=== PATIENT | female | born 1960 ===

== ENCOUNTER 2016-09-18 07:59 | Inpatient (IN) | payer OTHER ==
[~2016-09-18] VITALS: Ht 158.7 cm; Wt 63.3 kg
--- NOTE | ~2016-09-18 | PR ---
[place], [place] PROGRESS NOTE NAME: [id number] UNIT #: [id number] ROOM: 317 DOCTOR: Anderson MALONE,APPLE BIRTHDATE: [birth year] DOS: 09/23/2016 SUBJECTIVE: The patient seen and spoke with the staff. Per staff, the patient is much calmer and not talking about the wedding or being as often as she was doing before. She is taking her medication regularly and did not have any side effect. The patient was pleasant, cooperative. She was actually in the day area watching a movie. She said that she is feeling better, taking her medications and did not have any side effect. She denied depressed mood or hopelessness. Denied any other neurovegetative signs and symptoms of depression. She said that she is talking with her family. She became very surprised when I asked her about her wedding and also being . She said that there is no groom, so there is no reason for her to be planning any wedding also. MENTAL STATUS EXAMINATION: The patient was pleasant, cooperative. Described her mood as "good." Affect, mood congruent. Thought process goal directed. No flight of ideas, loosening of association. She denied auditory or visual hallucination. She seems to be a little bit delusional, but not as overt as before. She denied suicidal ideation, intent or plan. She also denied homicidal ideation, intent or plan. Insight and judgment fair. ASSESSMENT: Schizoaffective disorder. PLAN: 1. Continue current medication and care. 2. Continue redirection. 3. Encourage activity and groups. APPLE MALONE MD CM:SHAILESH 1102 0151 Anderson MALONE 09/24/16 0151 interface
--- NOTE | ~2016-09-18 | PR ---
[place], [place] PROGRESS NOTE NAME[id number] UNIT #: [id number] ROOM: 317 DOCTOR: Anderson MALONE,APPLE BIRTHDATE: [birth year] DOS: 09/26/2016 PSYCHIATRIC PROGRESS NOTE SUBJECTIVE: The patient seen and spoke with the staff. Per staff, the patient is doing well. No behavioral problems or issues, taking her medication. Good sleep and appetite. The patient was pleasant, cooperative. She was in the day area watching TV with other patients in the unit. She reports doing well and feeling better. She did not talked about her wedding, no other delusion noted. She feels that the medication is helping her. We then started talking about plan her discharge plan. She was asking if she will be going to her brother or not. Then, the team actually discussed with her about going back to the senior care. She was informed that her sister want her to go to the senior care, so that the mental health agency can help her with the housing. She agreed with the plan. She was also informed that her sister want to help her throughout the process. MENTAL STATUS EXAMINATION: Pleasant, cooperative, describes her mood as "good." Affect, mood congruent. Thought process goal directed. No flight of ideas, loosening of association. She denied auditory or visual hallucination. No delusion or paranoia noted. She denied suicidal ideation, intent or plan. She also denied homicidal ideation, intent or plan. Insight and judgment fair. ASSESSMENT: Schizoaffective disorder. PLAN: 1. Continue current medication and care. 2. Continue redirection. 3. Discharge planning. APPLE MALONE MD CM:SHAILESH 10 10 Anderson MALONE 09/27/161910 interface
--- NOTE | ~2016-09-18 | PR ---
[place], [place] PROGRESS NOTE [id number] UN[facility] #: [id number] ROOM: 317 DOCTOR: Anderson MALONE,APPLE BIRTHDATE: [birth year] DOS: 09/21/2016 SUBJECTIVE: The patient seen and spoke with the staff. Per staff, the patient is still delusional and paranoid, taking her medications. No behavioral problems or issues. The patient was pleasant, cooperative. She was in the day area. She reports doing well. She reported good sleep and appetite, still seems guarded. Talked about the marriage, but did not elaborate on it. She feels that the medication is helping her. She did not express any of the problems or concern. MENTAL STATUS EXAMINATION: The patient was pleasant, cooperative. Described her mood as "fine." Affect broad range. Thought process goal directed. There is no flight of ideas or loosening of association. She denied auditory or visual hallucination. She is still delusional, paranoid. She denied suicidal ideation, intent or plan. She also denied homicidal ideation, intent or plan. ASSESSMENT: Schizoaffective disorder. PLAN: 1. Continue current Invega. 2. We will add Cymbalta 30 mg in the morning, which will help with her depression as well as her pain issues with fibromyalgia. 3. Continued redirection. 4. Supportive care. APPLE MALONE MD CM:SHAILESH 2133 1 Anderson MALONE 09/22/16201 interface
--- NOTE | ~2016-09-18 | PR ---
[place], [place] PROGRESS NOTE [id number] UNIT #: [id number] ROOM: 317 DOCTOR: Anderson MALONE,APPLE BIRTHDATE: [birth year] DOS: 09/25/2016 PSYCHIATRIC PROGRESS NOTE SUBJECTIVE: The patient seen and spoke with the staff. Per the staff, the patient is doing well. No behavioral problems or issues. Medication compliant and slept well. The patient was pleasant, cooperative, reports doing well. Denies depressed mood or hopelessness. She said that she is willing to go back with her brother. She did not express any other concerns. MENTAL STATUS EXAMINATION: The patient was pleasant and cooperative, described her mood as "good." Affect, mood congruent. Thought process goal directed. No flight of ideas or loosening of association. She denied auditory or visual hallucination. No delusion or paranoia noted. She denied any suicidal ideation, intent or plan. She also denied any homicidal ideation, intent or plan. Insight and judgment. ASSESSMENT: Schizoaffective disorder. PLAN: 1. Continue current medication. 2. Continue redirection. 3. Discharge planning. APPLE MALONE MD CM:SHAILESH 0929 1338 Anderson MALONE 09/25/16 1338 interface
--- NOTE | ~2016-09-18 | PR ---
[place], [place] PROGRESS NOTE [id number] UNIT #: [id number] ROOM: 317 DOCTOR: Anderson MALONE,APPLE BIRTHDATE: [birth year] DOS: 09/20/2016 SUBJECTIVE: The patient seen and spoke with the staff. Per staff, the patient took all of her medication, but still guarded and delusional. No behavioral problems or issues. The patient was pleasant, cooperative. She was in the day area. She reports poor sleep at night, said wanted to get back her Ambien. She denied any other problems or issues. MENTAL STATUS EXAMINATION: The patient was pleasant, cooperative. Described her mood as "okay." Affect, broad range, guarded. Thought process goal directed. No flight of ideas or loosening of association. She denied auditory or visual hallucinations. She seems to be guarded and delusional related with the marriage. She denied suicidal ideation, intent or plan. She also denied homicidal ideation, intent or plan. Insight and judgment poor to fair. ASSESSMENT: Schizoaffective disorder. PLAN: 1. Continue current medication and care. 2. We will start her on trazodone 50 mg at night. 3. Continue redirection. 4. Encourage activity and groups. APPLE MALONE MD CM:SHAILESH 09 Anderson MALONE 09/21/16 0059 interface
--- NOTE | ~2016-09-18 | CON ---
[place], [place] REPORT OF CONSULTATION NAME: ALMAZ WALLIS UNIT #: [id number] ROOM: 317 DOCTOR: ALOK KEENAN ED.D (LEXI) BIRTHDATE: [birth year] DOS: 09/24/2016 HISTORY OF PRESENT ILLNESS: The patient is a 55-year-old female referred by Dr. Oliver for competency evaluation. At the present time, this patient is on [facility]. She states she is and has no children. She does have two brothers and 1 sister and also her parents are still living. She has a high school education. Presently works at [employer] in [place], [place]. Her family physician is Dr. Pereira and her medical history is pertinent for schizoaffective disorder, chronic back pain and fibromyalgia. Her medications include Cymbalta, baclofen, Ambien and ibuprofen. She is presently prescribed Invega, trazodone, Zofran and Ativan here at the hospital. She denies any significant substance abuse issues. This patient was awake, alert and oriented in all three spheres. She knew the date. She knew where she was and she was able to answer other questions with no difficulty whatsoever. This patient denies any suicidal ideation or plan and does not appear to be having any active auditory or visual hallucinations or delusional thoughts. Apparently, she was having some delusional thoughts several days ago, but those have apparently cleared following my interview. In my opinion, this patient is clearly competent to make informed healthcare decisions. Her insight, judgment and concentration are fair. DIAGNOSIS: Schizoaffective disorder. RECOMMENDATIONS: 1. In my opinion, this patient should return to the homeless skilled nursing where she has recently been residing. 2. The patient should follow up with outpatient psychiatry and counseling once she is discharged from the hospital. Thank you very much for this consult. ALOK KEENAN ED.D CM:CONSTR:REPORT OF CONSULTATION 0903 09/24/16 2350 bev OLIVER
--- NOTE | ~2016-09-18 | PR ---
[place], [place] PROGRESS NOTE [id number] UN[facility] #: [id number] ROOM: 317 DOCTOR: Anderson MALONE,APPLE BIRTHDATE: [birth year] DOS: 09/22/2016 SUBJECTIVE: The patient is seen and spoke with the staff. Per staff, the patient is doing well. Still delusional about marriage, but no behavioral problems or issues. Medication compliant. The patient was pleasant, cooperative. She was in her room. She said that she was feeling a little bit tired, but no other behavioral problems or issues. She said that she is feeling better. I asked her about the wedding. She said that "I don't know what is going to happen." She did not elaborate. She denied any side effect from the medication. MENTAL STATUS EXAMINATION: The patient was pleasant, cooperative. Described her mood as "okay." Affect, mood congruent. Thought process goal directed. No flight of ideas, loosening of association. She denied auditory or visual hallucination. She is still delusional, paranoid. She denied suicidal ideation, intent or plan. She also denied homicidal ideation, intent or plan. Insight and judgment poor to fair. ASSESSMENT: Schizoaffective disorder. PLAN: 1. Continue current medication and care. 2. Continue redirection. 3. Supportive care. APPLE MALONE MD CM:SHAILESH 0925 1023 Anderson MALONE 09/22/16 1023 interface
--- NOTE | ~2016-09-18 | PR ---
[place], [place] PROGRESS NOTE [facility] [id number] UNIT #: [id number] ROOM: 317 DOCTOR: Anderson MALONE,APPLE BIRTHDATE: [birth year] DOS: 09/27/2016 PSYCHIATRIC PROGRESS NOTE SUBJECTIVE: The patient seen and spoke with the staff. Per staff, the patient is doing well. No behavioral problems or issues. Medication compliant. Slept well last night. The patient was pleasant, cooperative. She was in her room. She reports doing "great." She said that she slept well last night. Her appetite is good. Denied depressed mood or hopelessness. She said that she is looking forward to go back to the retirement and then work with the agency to get her housing. The oncology social worker actually spoke with her sister and her brother. They feel that is the best option and the sister will actually continue to help her in the process of getting the apartment or the housing. The patient mentioned that she is taking her medication and did not have any side effect from the medication. MENTAL STATUS EXAMINATION: The patient was pleasant, cooperative. She was alert, oriented to day, date, month and year. She looks bright and happy, described her mood as "good." Affect, mood congruent. Thought process goal directed. No flight of ideas or loosening of association. She denied auditory or visual hallucination. No delusion or paranoia noted. She denied suicidal ideation, intent or plan. She also denied homicidal ideation, intent or plan. Insight and judgment. ASSESSMENT: Schizoaffective disorder. PLAN: 1. Continue current medication and care. 2. Continue redirection. 3. Discharge planning. APPLE MALONE MD CM:SHAILESH 0748 20 Anderson MALONE 09/27/16 232 interface
--- NOTE | ~2016-09-18 | DS ---
[place], [place] DISCHARGE SUMMARY [id number] UNIT #: [id number] ROOM: 317 DOCTOR: Anderson MALONE,APPLE BIRTHDATE: [birth year] DOS: 09/28/2016 HISTORY OF PRESENT ILLNESS: The patient seen and chart reviewed. A 55-year-old female who was actually brought into [facility] for acute psychotic episode . According to the medical record, the patient was taken to the ER by ambulance from a homeless fpc in [place] because of increased psychosis. In the ER, the patient's labs were within normal limit. Urine drug screen was negative. She got admitted to the psychiatric floor for further care and stabilization. The patient was pleasant, cooperative during the interview. She mentioned that her sister and [id number] insisted her to go to the ER because she was not "doing well." She said that her fibromyalgia has been getting worse and that is why she went to the ER. She also talked about getting last Saturday and stated that her fiance never came. She said that her sister and [id number] got together and told her fiance not to her. She also talked about being and stopped taking her medication. When I just asked her about hearing voices, she said that she occasionally hear, but then did not elaborate. She denied being paranoid. She denied any other psychotic symptoms, seems very guarded and not forthcoming. She denied any depressed mood, hopelessness and helplessness. Denied any other neurovegetative signs and symptoms of depression. PAST MEDICAL HISTORY: Significant for chronic back pain, fibromyalgia. PAST PSYCHIATRIC HISTORY: The patient denies any prior psychiatric hospitalization. No prior suicide attempt, no suicide in the family. Denied having any gun at home. SUBSTANCE ABUSE HISTORY: Urine drug screen was negative. SOCIAL HISTORY: She was born and raised in [place], [place]. High school graduate. once, . She did not have any kids. 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 She lives by herself, even though she states that she became homeless a few months ago because she did not pay the rent. She denied any history of physical or sexual abuse. ADMISSION MENTAL STATUS EXAMINATION: The patient was pleasant and cooperative, described her mood as "okay." Affect broad range, labile. Thought process goal directed. No flight of ideas or loosening of association. She denied auditory or visual hallucination, but seems responding to stimuli. She is delusional and paranoid. She denied suicidal ideation, intent or plan. She also denied homicidal ideation, intent or plan. Insight and judgment impaired. ADMISSION DIAGNOSES: Schizoaffective disorder, still psychotic and delusional. HOSPITAL COURSE: The patient got admitted for stabilization. We started her on Cymbalta and Invega, which she tolerated well. During the next couple of days, the patient started improving slowly. She was seen by the treatment team [place], [place] DISCHARGE SUMMARY [id number] UN[facility] #: [id number] ROOM: [facility] DOCTOR: Anderson MALONE,[facility] BIRTHDATE: [birth year] regularly. One-to-one therapy, psychoeducation and coping skill was provided to the patient. During her stay, the patient has never been a threat to herself or anyone else. She was pleasant, cooperative and engaging. She was seen watching TV, playing cards and interacting with other patients in the unit. The patient was complaining of poor sleep at night, so we started her on trazodone 50 mg, which she tolerated well with significant improvement of her sleep. The patient was not psychotic. She was not manic or hypomanic. She was not depressed, suicidal or homicidal. The treatment team felt that the patient got maximum benefit out of this acute hospitalization and can be discharged back to the fpc that she came from. It should be noted that prior to the discharge, the treatment team actually spoke with the patient's family and they and the patient felt that going to the fpc will be of her best interest because she will get her housing more quickly if she goes to the fpc. DISCHARGE MENTAL STATUS EXAMINATION: Alert and oriented x 4, pleasant, cooperative. Describes her mood as "good." Affect congruent. Thought process goal directed. No flight of ideas, loosening of association. She denied auditory or visual hallucination. No delusion or paranoia noted. She denied suicidal ideation, intent or plan. She also denied any homicidal ideation, intent or plan. Insight and judgment fair. ASSESSMENT: Schizoaffective disorder. DISCHARGE MEDICATIONS: Include Cymbalta 30 mg in the morning, trazodone 50 mg at night and Invega 6 mg in the morning. DISCHARGE INSTRUCTIONS: 1. The patient was advised to take her medication regularly. 2. The patient was advised to go for followup regularly. 3. The patient was advised not to use any drugs or alcohol. 4. The patient was advised to call 911 or get help if there is any crisis. [place], [place] DISCHARGE SUMMARY NAME: ALMAZ WALLIS UNIT #: [id number] ROOM: [facility] DOCTOR: Andersno MALONE,APPLE BIRTHDATE: [birth year] APPLE MALONE MD CM:JOSE ANGEL 0849 2 Anderson MALONE 09/29/16 0913 interface
--- NOTE | ~2016-09-18 | WRIGHTHP ---
[place], [place] PATIENT HISTORY AND PHYSICAL EXAM NAME[id number] UNIT #: [id number] ROOM: 317 DOCTOR: Anderson MALONE MAHBOOB BIRTHDATE: [birth year] DOS: 09/18/2016 REASON FOR HOSPITALIZATION: Increased delusions and paranoia due to noncompliance with medication. HISTORY OF PRESENT ILLNESS: The patient seen and chart reviewed. A 55-year-old female who was actually brought into [facility] for acute psychotic episode . According to the medical record, the patient was taken to the ER by ambulance [facility] [place] because of increased psychosis. In the ER, the patient's labs were within normal limit. Urine drug screen was negative. She got admitted to the psychiatric floor for further care and stabilization. The patient was pleasant, cooperative during the interview. She mentioned that her sister and [id number] insisted her to go to the ER because she was not "doing well." She said that her fibromyalgia has been getting worse and that is why she went to the ER. She also talked about getting last Saturday and stated that her fiance never came. She said that her sister and [id number]-uuj got together and told her fiance not to her. She also talked about being and stopped taking her medication. When I just asked her about hearing voices, she said that she occasionally hear, but then did not elaborate. She denied being paranoid. She denied any other psychotic symptoms, seems very guarded and not forthcoming. She denied any depressed mood, hopelessness and helplessness. Denied any other neurovegetative signs and symptoms of depression. PAST MEDICAL HISTORY: Significant for chronic back pain, fibromyalgia. PAST PSYCHIATRIC HISTORY: The patient denies any prior psychiatric hospitalization. No prior suicide attempt, no suicide in the family. Denied having any gun at home. SUBSTANCE ABUSE HISTORY: Urine drug screen was negative. SOCIAL HISTORY: She was born and raised in [place], [place]. High school graduate. once, . She did not have any kids. 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 She lives by herself, even though she states that she became homeless a few months ago because she did not pay the rent. She denied any history of physical or sexual abuse. MENTAL STATUS EXAMINATION: The patient was pleasant and cooperative, described her mood as "okay." Affect broad range, labile. Thought process goal directed. No flight of ideas or loosening of association. She denied auditory or visual hallucination, but seems responding to stimuli. She is delusional and paranoid. She denied suicidal ideation, intent or plan. She also denied homicidal ideation, intent or plan. Insight and judgment impaired. ASSESSMENT: Schizoaffective disorder, still psychotic and delusional. [place], [place] PATIENT HISTORY AND PHYSICAL EXAM NAME: ALMAZ WALLIS UNIT #: [id number] ROOM: [facility] DOCTOR: Anderson MALONE,APPLE BIRTHDATE: [birth year] PLAN: 1. I will continue her Invega 6 mg a day. 2. I will start her on Cymbalta 30 mg, which should help with her pain and also with her mood. 3. Need to get collateral information. 4. One-to-one therapy, psychoeducation and coping skills. 5. Encourage activity and groups. APPLE MALONE MD CM:HISPHYS:PATIENT HISTORY AND PHYSICAL EXAMINATION 14 32 Anderosn MALONE 09/19/162232 interface
--- NOTE | ~2016-09-18 | PR ---
[place], [place] PROGRESS NOTE NAME[id number] UNIT #: [id number] ROOM: 317 DOCTOR: Anderson MALONE,APPLE BIRTHDATE: [birth year] DOS: 09/24/2016 PSYCHIATRIC PROGRESS NOTE SUBJECTIVE: The patient seen and spoke with the staff. Per staff, the patient is doing good, taking her medication regularly. No behavioral problems or issues. Slept well last night and does not talk about her delusion as much the way she was doing before. The patient was pleasant, cooperative. She reports doing well. When I asked her about the wedding, she said that she is not thinking about it anymore. I talked with her about her going home. She said that she does not mind going back to the halfway, but when I suggested to her that she can go with any of her family, she said that she can go and stay with her brother and then get the help from the mental health agency in terms of her housing. MENTAL STATUS EXAMINATION: The patient was pleasant, cooperative, described her mood as "okay. Affect, mood congruent. Thought process goal directed. No flight of ideas or loosening of association. She denied auditory or visual hallucination. No delusion or paranoia noted. She denied suicidal ideation, intent or plan. She also denied homicidal ideation, intent or plan. Insight and judgment fair. ASSESSMENT: Schizoaffective disorder. PLAN: 1. Continue current medication and care. 2. Continue redirection. 3. Encourage activity in groups. 4. Discharge planning. APPLE MALONE MD CM:SHAILESH 39 29 Anderson MALONE 09/25/161329 interface
[2016-09-18 11:58] VITALS: BP 106/67
[2016-09-18 12:06] VITALS: BP 106/67
[2016-09-18] MEDS ORDERED: CYMBALTA30 MG PO (13:46)
[2016-09-18] MEDS ORDERED: BACLOFEN20 M1 PO (13:48)
[2016-09-18] MEDS ORDERED: AMBIEN5 MG PO (13:49)
[2016-09-18 20:17] VITALS: BP 116/66
[2016-09-19 06:35] LABS: BASO % 0.6 % (0.0-1.0); EOS # 0.3 10*3/uL (0.0-0.4); EOS % 4.5 % (1.0-4.0); HEMATOCRIT 38.8 % (37.0-47.0); HEMOGLOBIN 12.7 g/dl (12.0-16.0); LYMPH # 2.2 10*3/uL (1.3-4.4); LYMPH % 31.2 % (27.0-41.0); MEAN CELL VOLUME 91.1 fl (81.0-99.0); MEAN CORPUSCULAR HGB 29.8 pg (27.0-31.0); MEAN CORPUSCULAR HGB CONC 32.7 g/dl (33.0-37.0); MEAN PLATELET VOLUME 9.9 fl (9.6-12.3); MONO # 0.6 10*3/uL (0.1-1.0); MONO % 8.1 % (3.0-9.0); NEUT # 3.9 10*3/uL (2.3-7.9); NEUT % 55.5 % (47.0-73.0); PLATELET COUNT AUTOMATED 230 10*3/uL (130-400); RED BLOOD COUNT 4.26 10*6/uL (4.10-5.10); RED CELL DISTRI WIDTH 11.9 % (0-14.5); WHITE BLOOD COUNT 7.1 10*3/uL (4.8-10.8)
[2016-09-19 20:00] VITALS: BP 100/71
[2016-09-19 22:51] LABS: BILIRUBIN NEGATIVE (NEGATIVE); BLOOD TRACE-INTACT (NEGATIVE); CLARITY SL CLOUDY (CLEAR); COLOR YELLOW (YELLOW); GLUCOSE NEGATIVE (NEGATIVE); KETONE NEGATIVE (NEGATIVE); LEUKO ESTERASE 2+ (NEGATIVE); NITRITE NEGATIVE (NEGATIVE); PROTEIN NEGATIVE (NEGATIVE); SPECIFIC GRAVITY 1.025 (1.005-1.030); UROBILINOGEN 0.2 E.U./dl (0.2-1.0)
[2016-09-19 23:00] LABS: BACTERIA 2+; URINE REFLEX COMMENT YES (NO); WBC 31-40 wbc/hpf (0-5)
[2016-09-20 06:27] LABS: ALBUMIN 3.3 gm/dl (3.1-4.5); ALKALINE PHOSPHATASE 106 U/L (45-117); BILIRUBIN, TOTAL 0.3 mg/dl (0.2-1.0); BUN 14 mg/dl (7-24); CARBON DIOXIDE 31 mmol/L (21-32); CHLORIDE 104 mmol/L (98-107); CHOLESTEROL 190 mg/dL (<200); EST GLOM FILT AFRICAN AMERICAN > 60 ml/min; GLUCOSE 82 mg/dL (65-99); HDL CHOLESTEROL 61 mg/dl (40-60); LDL CHOLESTEROL 118 mg/dL (9-159); POTASSIUM 4.1 mmol/L (3.5-5.1); SGOT/AST 11 IU/L (3-35); SGPT/ALT 22 U/L (12-78); SODIUM 141 mmol/L (136-145); TOTAL PROTEIN 6.9 gm/dL (6.4-8.2); TRIGLYCERIDES 56 mg/dl (<150); VLDL CHOLESTEROL 11 mg/dL (6-40)
[2016-09-20 07:08] LABS: HEMOGLOBIN A1c 5.9 % (4.8-5.6)
[2016-09-20 07:30] LABS: FOLIC ACID 18.2 ng/mL (>5.38)
[2016-09-20 08:07] VITALS: BP 104/71
[2016-09-20 20:15] VITALS: BP 98/60
[2016-09-21 07:57] VITALS: BP 108/72
[2016-09-21 20:00] VITALS: BP 108/62
[2016-09-22 08:30] VITALS: BP 100/60
[2016-09-22 19:59] VITALS: BP 113/68
[2016-09-23 08:00] VITALS: BP 115/78
[2016-09-23 20:32] VITALS: BP 104/62
[2016-09-24 10:51] VITALS: BP 112/76
[2016-09-24 20:24] VITALS: BP 105/65
[2016-09-25 08:10] VITALS: BP 94/64
[2016-09-25 08:33] VITALS: BP 100/58
[2016-09-25 19:53] VITALS: BP 102/60
[2016-09-26 08:56] VITALS: BP 99/48
[2016-09-26] MEDS ORDERED: DULOXETINE HCL30 MG PO (19:17)
[2016-09-26] MEDS ORDERED: TRAZODONE50 MG PO (19:17)
[2016-09-26] MEDS ORDERED: PALIPERIDONE ER6 MG PO (19:17)
[2016-09-26 20:17] VITALS: BP 100/62
[2016-09-27 08:00] VITALS: BP 105/56
[2016-09-27 21:00] VITALS: BP 100/70
[2016-09-28 08:03] VITALS: BP 98/50
[2016-09-28] MEDS ORDERED: Vitamin D PO (09:48)
== END 2016-09-28 15:22 | disposition home or self-care (01) | DRG 885 ==
LOC: 3N 07:59
PROVIDERS: Psychiatry & Neurology Psychiatry
DX: F25.9 Schizoaffective disorder, unspecified (principal); F23 Brief psychotic disorder; N39.0 Urinary tract infection, site not specified; G89.29 Other chronic pain; M54.9 Dorsalgia, unspecified; F22 Delusional disorders; F32.9 Major depressive disorder, single episode, unspecified; E55.9 Vitamin D deficiency, unspecified; M79.7 Fibromyalgia; Z81.8 Family history of other mental and behavioral disorders; Z88.1 Allergy status to other antibiotic agents; Z88.0 Allergy status to penicillin; Z88.2 Allergy status to sulfonamides; Z91.013 Allergy to seafood; Z79.899 Other long term (current) drug therapy